=== PATIENT | female | born 1960 | race Caucasian/White ===

== ENCOUNTER 2019-05-25 11:07 | Emergency (ER) | payer BC, SELFPAY ==
[2019-05-25 11:19] VITALS: BP 125/76; PULSE 73; RESP 18; TEMP 36.8; O2SAT 99
--- NOTE | 2019-05-25 11:36 | ED.WOUNDLAC ---
HPI - Wound/Laceration General Chief Complaint: Wound/Laceration <ERICH Shultz Last Filed: 05/25/19 13:35> Stated Complaint: Laceration <ERICH Shultz Last Filed: 05/25/19 13:35> Time Seen by Provider: 05/25/19 11:21 <ERICH Shultz Last Filed: 05/25/19 13:35> Source: patient <ERICH Shultz Last Filed: 05/25/19 13:35> Mode of arrival: ambulatory <ERICH Shultz Last Filed: 05/25/19 13:35> Limitations: no limitations <ERICH Shultz Last Filed: 05/25/19 13:35> History of Present Illness HPI narrative: This is a 58 year old female that presents to the ER for laceration to her left elbow sustained just prior to arrival. Reports she was removing tile and threw a piece of tile in her bucket and another piece of tile cut her elbow. Reports she applied a bandage at home and has been elevating the arm. Reports she is up to date on tetanus. Denies fever, decreased ROM, numbness or erythema. <ERICH Shultz Last Filed: 05/25/19 13:35> Related Data Home Medications: Home Medications Medication Instructions Recorded Confirmed alendronate [Fosamax] 70 mg PO WEEKLY 05/25/19 <ERICH Shultz Last Filed: 05/25/19 13:35> Allergies/Adverse Reactions: Allergies Allergy/AdvReac Type Severity Reaction Status Date / Time No Known Allergies Allergy Verified 05/25/19 11:17 <ERICH Shultz Last Filed: 05/25/19 13:35> Review of Systems Review of Systems: Narrative: CONSTITUTIONAL: Denies fever SKIN: Reports laceration MUSCULOSKELETAL: Denies joint pain NEUROLOGIC: Denies numbness <ERICH Shultz Last Filed: 05/25/19 13:35> All systems reviewed & are unremarkable except as noted in HPI and below <ERICH Shultz Last Filed: 05/25/19 13:35> [facility] Past Medical History Medical History: Medical History (Updated 05/25/19 @ 13:34 by Milli Deluca PA-C) History of osteoporosis <Milli Deluca PA-C - Last Filed: 05/25/19 13:35> Family History Family History: Family History (Updated 10/04/17 @ 09:38 by DOCTOR UNKNOWN) Grandparent Diabetes mellitus Family history of cardiovascular disease Mother Hypertension <Milli Deluca PA-C - Last Filed: 05/25/19 13:35> Social History Social History: Social History Smoking status: Never smoker Alcohol intake: current Gender identity (if verbalized by the patient): Female <Milli Deluca PA-C - Last Filed: 05/25/19 13:35> Exam Narrative: Exam Narrative: GENERAL: Well-appearing, well-nourished, and in no acute distress. HEAD: Normocephalic, atraumatic. EYES: EOMI. EXTREMITIES: Normal range of motion. No edema. 6cm linear laceration into subcutaneous tissue around left elbow SKIN: Warm, dry, no rash. NEURO: No focal deficits. Alert and oriented x3. PSYCH: Normal mood and affect <Milli Deluca PA-C - Last Filed: 05/25/19 13:35> Course Vital Signs Vital signs: Vital Signs Temperature 36.8 C 05/25/19 11:19 Pulse Rate 73 05/25/19 11:19 Respiratory Rate 18 05/25/19 11:19 Blood Pressure 125/76 05/25/19 11:19 Pulse Oximetry 99 05/25/19 11:19 Temperature 36.8 C 05/25/19 11:19 Pulse Rate 73 05/25/19 11:19 Respiratory Rate 18 05/25/19 11:19 Blood Pressure 125/76 05/25/19 11:19 Pulse Oximetry 99 05/25/19 11:19 <Milli Deluca PA-C - Last Filed: 05/25/19 13:35> Vital Signs Temperature 36.8 C 05/25/19 11:19 Pulse Rate 73 05/25/19 11:19 Respiratory Rate 18 05/25/19 11:19 Blood Pressure 125/76 05/25/19 11:19 Pulse Oximetry 99 05/25/19 11:19 Temperature 36.8 C 05/25/19 11:19 Pulse Rate 73 05/25/19 11:19 Respiratory Rate 18 05/25/19 11:19 Blood Pressure 125/76 05/25/19 11:19 Pulse Oximetry 99 05/25/19 11:19 <Susana Guillory MD - Last Filed: 05/25/19 16:29> Procedures Laceration Laceration 1:
== END 2019-05-25 13:40 | disposition home or self-care (01) ==
PROVIDERS: Emergency Provider Emergency Medicine
DX: S51.012A Laceration without foreign body of left elbow, initial encounter (principal); M81.0 Age-related osteoporosis without current pathological fracture; W26.8XXA Contact with other sharp object(s), not elsewhere classified, initial encounter; Z23 Encounter for immunization
CPT/HCPCS: 12002; 96375; 99282

== ENCOUNTER 2020-05-04 14:24 | Outpatient (CLI) | payer BC, SELFPAY ==
--- NOTE | ~2020-05-04 | MM_ITS ---
EXAMINATION: MM screening [facility] BI w yves HISTORY: Screening mammogram TECHNIQUE: Craniocaudal and mediolateral oblique 3-D tomosynthesis images were obtained and synthetic 2-D images were generated. CAD analysis was submitted and interpreted. COMPARISON: 03/12/2019, 02/25/2018, 04/27/2016 BREAST PARENCHYMAL COMPOSITION: There are scattered areas of fibroglandular density. FINDINGS: There is no evidence of suspicious mass, calcification, or architectural distortion to sugg est malignancy in either breast. There has been no suspicious interval change. IMPRESSION: 1. No mammographic evidence of malignancy. 2. Recommend routine screening mammography in one year. BI-RADS Category 1: Negative Reviewed, dictated and finalized at location A. TY SCIENTIST
== END 2020-05-04 14:25 | disposition home or self-care (01) ==
PROVIDERS: Family Provider Family Medicine; PCP Family Medicine; Visit Provider Physician Assistant
DX: Z12.31 Encounter for screening mammogram for malignant neoplasm of breast (principal)
CPT/HCPCS: 77063; 77067

== ENCOUNTER 2021-10-24 16:37 | Outpatient (CLI) | payer OTHER, SELFPAY ==
--- NOTE | ~2021-10-24 | MM_ITS ---
EXAMINATION: MM screening [facility] BI w yves HISTORY: Screening TECHNIQUE: Craniocaudal and mediolateral oblique 3-D tomosynthesis images were obtained and synthetic 2-D images were generated. CAD analysis was submitted and interpreted. COMPARISON: Comparison to multiple prior studies sequentially, with oldest reviewed study dated 02/22. BREAST PARENCHYMAL COMPOSITION: There are scattered areas of fibroglandular density. FINDINGS: There is no evidence of suspicious mass, calcification, or architectural distortion to sugg est malignancy in either breast. There has been no suspicious interval change. IMPRESSION: 1. No mammographic evidence of malignancy. 2. Recommend routine screening mammography in one year. BI-RADS Category 1: Negative Reviewed, dictated and finalized at location A.
== END 2021-10-24 16:38 | disposition home or self-care (01) ==
PROVIDERS: PCP Family Medicine; Visit Provider Family Medicine
DX: Z12.31 Encounter for screening mammogram for malignant neoplasm of breast (principal)
CPT/HCPCS: 77063; 77067